=== PATIENT | male | born 1995 | race Caucasian/White ===

== ENCOUNTER 2023-03-10 16:49 | Emergency (ER) | payer OTHER, SELFPAY ==
[2023-03-10 17:01] VITALS: BP 119/74; PULSE 82; RESP 16; TEMP 36.5; O2SAT 99
--- NOTE | 2023-03-10 17:38 | ED.BACK ---
HPI - Back Pain/Injury General Chief Complaint: Back Pain/Injury Stated Complaint: painful back Time Seen by Provider: 03/10/23 17:29 Source: patient and RN notes reviewed Mode of arrival: ambulatory Limitations: no limitations History of Present Illness HPI Narrative: Patient presents today complaining of left lower back pain. He was packing a cooler this morning at 8:00 a.m. that was approximately 10 lb when he felt a severe spasm in his left lower back. Denies radiation of the pain. Denies numbness or tingling in the extremities or genitalia. Denies any loss of bowel or bladder control. He currently rates his pain 10/10 and has taken motrin and used ice without relief. Related Data Allergies Allergy/AdvReac Type Severity Reaction Status Date / Time No Known Allergies Allergy Verified 03/10/23 17:38 Review of Systems Review of Systems: CONSTITUTIONAL: Denies body aches, fever, chills, or sweats. EYES: Denies visual changes, redness, or discharge. ENT: Denies rhinorrhea, congestion, sore throat, or otalgia. CARDIOVASCULAR: Denies chest pain, palpitations, or edema. RESPIRATORY: Denies cough or dyspnea. GASTROINTESTINAL: Denies abdominal pain, nausea, vomiting, or diarrhea. GENITOURINARY: Denies dysuria or hematuria. SKIN: Denies rash, itching, or wounds. MUSCULOSKELETAL: + low back pain NEUROLOGIC: Denies headache, numbness, tingling, or weakness. PSYCH: Denies depression or anxiety. PMFSH Comments At time of signature, I have reviewed and agree with nursing past medical, surgical, social and family history unless otherwise noted. Please see nursing chart for further information. There is no relevant family history pertinent to the presenting complaint Exam Narrative: GENERAL: Well-appearing, well-nourished, and in no acute distress. HEAD: Normocephalic, atraumatic. EYES: EOMI. No redness or drainage. Conjunctivae normal. ENT: Mucous membranes pink and moist. NECK: Normal AROM. CHEST: No respiratory distress. MUSCULOSKELETAL: No bony tenderness of the spine. Bilateral lower lumbar paraspinal muscle tenderness extending to the left SI joint. Distal sensation intact. Saddle sensation intact. Capillary refill normal. Dorsiflexion and plantar flexion equal and strong against resistance. Pedal pulses normal. EXTREMITIES: Normal range of motion. No edema. SKIN: Warm, dry, no rash. Capillary refill normal. Normal skin turgor. NEURO: No focal deficits. Alert and oriented x3. Gait steady. PSYCH: Normal affect. No signs of depression or anxiety. Course Course Level of Care: Express Care Visit Vital Signs Vital signs: Vital Signs Temperature 97.7 F 03/10/23 17:01 Pulse Rate 82 03/10/23 17:01 Respiratory Rate 16 03/10/23 17:01 Blood Pressure 119/74 03/10/23 17:01 Pulse Oximetry 99 03/10/23 17:01 Oxygen Delivery Room Air 03/10/23 17:01 Temperature 97.7 F 03/10/23 17:01 Pulse Rate 82 03/10/23 17:01 Respiratory Rate 16 03/10/23 17:01 Blood Pressure 119/74 03/10/23 17:01 Pulse Oximetry 99 03/10/23 17:01 Oxygen Delivery Room Air 03/10/23 17:01 Reviewed MDM - Back Pain/Injury MDM Narrative Medical decision making narrative: Symptoms and exam consistent with low back strain. Will send prescription for Flexeril and prednisone and have suggested patient take ibuprofen as well and use a heating pad. Anticipatory guidance given. Differential Diagnosis Differential diagnosis: Likely lumbar radiculopathy, sciatica and strain of lumbar region Critical Care Time Critical Care Time Critical Care Time: No Discharge Plan Discharge Clinical Impression: Strain of lumbar region Qualifiers: Encounter type: initial encounter Qualified Code(s): S39.012A - Strain of muscle, fascia and tendon of lower back, initial encounter Patient Disposition: Home, Self-Care Condition: Stable Instructions: Low Back Strain (ED) Additional Instructions: Please t
== END 2023-03-10 17:57 | disposition home or self-care (01) ==
PROVIDERS: Emergency Provider Nurse Practitioner; PCP Family Medicine
DX: S39.012A Strain of muscle, fascia and tendon of lower back, initial encounter (principal); X58.XXXA Exposure to other specified factors, initial encounter
CPT/HCPCS: 99203; G0463